=== PATIENT | male | born 1980 | race Caucasian/White ===

== ENCOUNTER 2019-08-31 15:07 | Emergency (ER) | payer OTHER ==
[~2019-08-31] VITALS: Ht 180.3 cm; Wt 134.7 kg
[~2019-08-31 15:07] MED LIST: CIPRO500 MG PO; FLAGYL500 MG PO; HYDROCODONE-AP1 EAC6 PO; NOHOMEMEDICATIONS; ZANTAC 150MG T150 MG PO; ZOFRAN ODT4 MG PO
[2019-08-31] MEDS ORDERED: DULOXETINE HCL60 MG PO (15:21)
[2019-08-31] MEDS ORDERED: LISINOPRIL2.5 MG PO (15:21)
[2019-08-31] MEDS ORDERED: CBD OIL (15:21)
[2019-08-31 16:41] LABS: ABSOLUTE BASOPHILS 0.1 thou/uL (0.0-0.2); ABSOLUTE EOSINOPHILS 0.1 thou/uL (0.0-0.7); ABSOLUTE LYMPHOCYTES 1.4 thou/uL (0.8-5.3); ABSOLUTE NEUTROPHILS 11.7 thou/uL (1.6-8.1); BASOPHILS 0.7 %; EOSINOPHILS 0.9 %; HEMATOCRIT 47.4 % (42.0-52.0); HEMOGLOBIN 16.2 gm/dL (14.0-18.0); LYMPHOCYTES 10.1 %; MCH 31.4 pg (26.0-34.0); MCHC 34.1 g/dL (28.0-37.0); MCV 91.8 fL (80.0-100.0); MONOCYTES 6.7 %; MPV 8.8 fl. (7.2-11.1); NUCLEATED RBCS 0 /100WBC; PLATELET COUNT* 388 thou/uL (150-400); POLYS 81.6 %; RBC 5.16 mil/uL (4.50-6.00); RDW-CV 13.4 % (10.5-14.5); WBC 14.3 thou/uL (4.0-11.0)
[2019-08-31 16:48] LABS: CALCIUM 9.6 mg/dL (8.5-10.1); POTASSIUM 4.3 mmol/L (3.5-5.1)
[2019-08-31 16:52] LABS: ALBUMIN 4.2 g/dL (3.4-5.0); TOTAL BILIRUBIN 0.7 mg/dL (<0.1-1.0); TOTAL PROTEIN 8.3 g/dL (6.4-8.2)
[2019-08-31] MEDS ORDERED: NORCO 5-325 TA1 EAC1 PO (19:02)
[2019-08-31 19:23] VITALS: BP 138/81
--- NOTE | 2019-09-01 16:03 | EKG ---
[place] [address] ELECTROCARDIOGRAM REPORT Name: SULTANA JACQUES Room: [facility]#: [id number] Admission: 08/31/19 Attend Phys: Discharge: 08/31/19 Date of : 78 Report #: [id number] THIS REPORT FOR: //name// [facility] ED Test Date: 2019-08-31 Test Time: 15:21:04 Pat Name: SULTANA JACQUES Department: Room: Gender: M [employer]: [place] : 1980 Requested By: Mary Siddiqui Order Number: [id number] MD: Real Calderon Measurements Intervals [place] Rate: 113 P: 36 WI: 128 QRS: 24 QRSD: 89 T: 66 QT: 319 QTc: 438 Interpretive Statements Sinus tachycardia Minimal ST depression, lateral leads Compared to ECG 10/17/2007 22:09:13 ST (T wave) deviation now present T-wave abnormality no longer present Electronically Signed On 09-01-2019 16:03:11 [employer] by Real Calderon [email or web address] <ELECTRONICALLY SIGNED> By: Real Calderon MD, [facility] 09/01/19 1603 1521 1521 Real Calderon MD, [facility] /EPI
== END 2019-08-31 19:24 | disposition home or self-care (01) ==
LOC: M.ERS 15:07
PROVIDERS: Nurse Practitioner Family
DX: K42.9 Umbilical hernia without obstruction or gangrene (principal); R94.5 Abnormal results of liver function studies; I10 Essential (primary) hypertension

== ENCOUNTER 2020-08-12 13:03 | Emergency (ER) | payer BC ==
[~2020-08-12] VITALS: Ht 180.3 cm; Wt 154.2 kg
[~2020-08-12 13:03] MED LIST changes: +CBD OIL; +DULOXETINE HCL60 MG PO; +LISINOPRIL2.5 MG PO; +NORCO 5-325 TA1 EAC1 PO
[2020-08-12] MEDS ORDERED: CLONAZEPAM 0.50.5 M1 PO (13:29)
[2020-08-12] MEDS ORDERED: VRAYLAR4.5 MG PO (13:29)
[2020-08-12] MEDS ORDERED: MEDROLDOSEPACK PO (15:01)
[2020-08-12] MEDS ORDERED: HYDROCODON-ACE1 EAC7 PO (15:01)
[2020-08-12 15:23] VITALS: BP 143/78
--- NOTE | 2020-08-15 10:18 | EKG ---
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 Hand: [facility] : 1980 Requested By: Marilyn Conley Order Number: [id number] Karina MD: Maury Perez Measurements Intervals [place] Rate: 120 P: 22 GA: 132 QRS: 23 QRSD: 86 T: 30 QT: 301 QTc: 426 Interpretive Statements Sinus tachycardia Probable left atrial enlargement Baseline wander in lead(s) V5,V6 Compared to ECG 08/31/2019 15:21:04 ST (T wave) deviation no longer present Electronically Signed On 08-15-2020 10:18:02 [employer] by Maury Perez [email or web address] <ELECTRONICALLY SIGNED> By: Maury Perez MD, FACC 08/15/20 1018 1326 1326 Maury Perez MD, [facility] /EPI
== END 2020-08-12 15:23 | disposition home or self-care (01) ==
LOC: M.ERS 13:03
DX: M79.604 Pain in right leg (principal); I10 Essential (primary) hypertension; Z79.899 Other long term (current) drug therapy